=== PATIENT | male | born 1970 | race African-American/Black ===

== ENCOUNTER 2016-12-08 11:01 | Emergency (ER) | payer MEDICAID ==
[~2016-12-08] VITALS: Ht 175.3 cm; Wt 84.5 kg
[2016-12-08] MEDS ORDERED: SERT50TA12 PO (11:12)
[2016-12-08 12:55] VITALS: BP 128/76
== END 2016-12-08 12:57 | disposition home or self-care (01) ==
LOC: EMS 11:03
DX: R05 Cough (principal); F17.210 Nicotine dependence, cigarettes, uncomplicated
CPT/HCPCS: 99281